=== PATIENT | female | born 1980 | race Caucasian/White ===

== ENCOUNTER 2019-05-26 00:05 | Emergency (ER) | payer OTHER ==
[~2019-05-26] VITALS: Ht 172.7 cm; Wt 104.3 kg
[~2019-05-26 00:05] MED LIST: ABILIFY 2 MG2 MG; ABILIFY MAINTE400 M1 IM; ABILIFY MAINTE400 MG IM; ABILIFY15 MG; ADDERALL 20 MG20 M1 PO; ADDERALL 30 MG30 MG PO; ADDERALL XR 2020 MG; ADDERALL XR 2020 MG PO; ADVAIR 500-501 EACH INH; ALBUTEROL2.5 MG/3 M IH; ALBUTEROL2.5 MG/31 INH; ALPRAZOLAM ER1 MG; AMBIEN 10 MG TA10 MG; AMBIEN 10 MG TA10 MG PO; AMBIEN 5 MG TABL5 M1 PO; ARISTADA882 MG/3.2 IM; ATIVAN0.5 MG PO; ATIVAN1 MG PO; AZITHROMYCIN 2250 MG PO; B12INJ SUBQ; BACLOFEN 10MG T10 MG PO; BACTRIM DS TAB1 EACH PO; BENADRYL25 MG PO; BENZTROPINE ME0.5 MG PO; CYMBALTA60 MG PO; D-AMPHETAMINE SALT PO; DIAZEPAM 10 MG10 M2 OR; DOXYCYCLINE 10100 MG PO; FENTANYL PA50 MCG/HR; FLEXERIL PO; GEODON40 MG PO; GLUCOPHAGE500 MG PO; HYDROCODON-ACE1 EAC7 PO; HYDROCODON-ACE1 EACH PO; HYDROCODONE; HYDROCODONE-AP1 EAC6 PO; HYDROCODONE-APA1 TA1 PO; IBUPROFEN 600600 M1 PO; IBUPROFEN 800800 M1 PO; IBUPROFEN 800800 MG PO; IRON325 PO; KEFLEX500 MG; LAMICTAL XR200 MG; LEVAQUIN 750 M750 MG PO; LEXAPRO 10 MG T10 M1 PO; LEXAPRO20 MG; LIDOCAINE 22 %/30 GM TRANSDERM; LIORESAL 10 MG10 MG PO; LISINOPRIL20 MG PO; LOPERAMIDE 2 MG2 M1 PO; LORTAB PO; MAALOX MAXIMUM355 ML PO; MEDROLDOSEPACK PO; METHOCARBAMOL500 M1 PO; MOM PO; NAPROSYN500 M1 PO; NEURONTIN 300300 M1 PO; NORCO 5-325 TA1 EAC1 PO; NORCO 5-325 TA1 EACH PO; NYSTATIN 1100000 U/M SW&SWALLOW; PREDNISONE 20 M20 M1 PO; PREDNISONE50 MG PO; PROTONIX40 M1 PO; PROZAC40 MG; RESTORIL15 MG PO; ROBAXIN 750 MG750 M1 PO; ROBAXIN 750 MG750 MG PO; ROBAXIN500 MG PO; ROBITUSSIN DM118 ML PO; TESSALON PERLE100 MG PO; TOPAMAX100 MG PO; TOPAMAX25 M1; TORADOL 10 MG T10 MG PO; TRAMADOL 50 MG50 MG PO; TRILEPTAL 300300 MG PO; TRILEPTAL300 MG PO; ULTRAM 50MG TAB50 MG PO; VALIUM10 MG PO; VALIUM5 MG; VALIUM5 MG PO; VENTOLIN HFA 1818 GM INH; VICODIN 5-5001 EACH PO; XANAX 0.5 MG0.5 MG; XANAX XR2 MG PO; XANAX1 MG PO; ZANAFLEX2 MG PO; ZPAK PO; [UNRECOGNIZED DRUG - OTHER]
[2019-05-26] MEDS ORDERED: LEXAPRO 10 MG T10 M2 PO (00:10)
[2019-05-26] MEDS ORDERED: TOPAMAX100 MG PO (00:11)
[2019-05-26] MEDS ORDERED: LAMICTAL150 MG PO (00:11)
[2019-05-26 00:39] LABS: INFLUENZA A ANTIGEN Negative (Negative); INFLUENZA B ANTIGEN Negative (Negative)
[2019-05-26] MEDS ORDERED: VENTOLIN HFA 1818 GM INH (01:17)
[2019-05-26 01:24] VITALS: BP 116/57
== END 2019-05-26 01:27 | disposition home or self-care (01) ==
LOC: M.ERS 00:05
PROVIDERS: Emergency Medicine Emergency Medical Services
DX: J45.909 Unspecified asthma, uncomplicated (principal); I10 Essential (primary) hypertension; F17.210 Nicotine dependence, cigarettes, uncomplicated; Z88.0 Allergy status to penicillin; Z88.5 Allergy status to narcotic agent; Z88.8 Allergy status to other drugs, medicaments and biological substances; Z87.01 Personal history of pneumonia (recurrent); Z86.2 Personal history of diseases of the blood and blood-forming organs and certain disorders involving the immune mechanism

== ENCOUNTER 2019-07-22 12:32 | Inpatient (IN) | payer OTHER ==
[~2019-07-22] VITALS: Ht 170.2 cm; Wt 135.6 kg
--- NOTE | ~2019-07-22 | CON ---
[address] [address] CONSULTATION Name: MANOLO BORJA Fabián Room: [address] IN M.R.#: [id number] Admission: 07/22/19 Attend Phys: Jay Costello Discharge: Date of : 82 Report #: [id number] THIS REPORT FOR: //name// cc: David Fox MD, Bruce D. MD ~ THIS REPORT FOR: //name// CC: David Felton DICTATED BY: Sejal Pino [facility] DATE OF SERVICE: 07/23/2019 Please note at the time of this dictation, the patient was seen and physically examined by myself. REASON FOR CONSULTATION: Anemia. HISTORY OF PRESENT ILLNESS: This is a 38-year-old female who presented to the Emergency Room with increasing shortness of breath that started the morning of admission. She does have a history of asthma. On arrival, her sats were in the 80s. She improved to the 90s after a respiratory treatment and received some Solu-Medrol as well as an albuterol treatment. She states she was feeling better. She had a nonproductive cough and a little bit of chest discomfort. She denies any nausea, vomiting, abdominal pain or any overt GI bleeding at this time. The patient was last seen by us in 2014 and she underwent an EGD by Dr. Galicia for her anemia, which was completely normal. She had a small hiatal hernia with her Benita-en-Y surgery that had been noted. The patient had previously had a colonoscopy back in 2007 that showed external hemorrhoids, which was essentially normal to the TI at that time as well. The patient does not take any iron supplementation or any B12 injections at this time. ALLERGIES: INCLUDE EFFEXOR, PENICILLIN, CODEINE, ZYPREXA, SUBOXONE. MEDICATIONS: From home include Lexapro, Lamictal, Topamax, Adderall, Ambien, Abilify and Xanax. PAST MEDICAL HISTORY: Includes pneumonia, depression, bipolar, asthma, meth use, hypertension, multiple suicide attempts, anemia, hypertension, herniated disk in the lower back and sciatica. PAST SURGICAL HISTORY: Gastric bypass in 2000 with multiple complications. She had 7 surgeries on her abdomen. Ulnar nerve surgery, tonsil [place] [address] CONSULTATION Name: MANOLO BORJA Fabián Room: [address]#: [id number] Admission: 07/22/19 Attend Phys: Jay Costello Discharge: Date of : 82 Report #: [id number] FAMILY HISTORY: Noncontributory. SOCIAL HISTORY: Continues to smoke tobacco, continues meth. Denies alcohol and on the urine drug screen, she was positive for amphetamines. REVIEW OF SYSTEMS: Twelve-point review of systems is essentially negative except what is mentioned in the HPI. PHYSICAL EXAMINATION: VITAL SIGNS: Temperature 36.5, pulse 114, respirations are 40, blood pressure 112/65. HEART: Regular rate and rhythm, but tachycardic. LUNGS: Diminished with crackles and wheezes bilaterally and she is in some respiratory distress and currently on BiPAP. ABDOMEN: Soft, positive bowel sounds in all 4 quadrants with no masses or tenderness noted and morbidly obese. LABORATORY DATA: Hemoglobin is 7.6, white count is 8.6, platelets 298, MCV is only 55.8. Total bilirubin is 2.8, alk phos 81, ALT 24, AST is 80. Chest x-ray essentially negative. IMPRESSION: 1. Acute on chronic anemia. 2. History of iron deficiency and B12 anemia in the past. 3. Elevated bilirubin. 4. Morbid obesity. 5. Respiratory distress. 6. History of substance abuse. PLAN: 1. Iron infusions. 2. We will check B12 and iron studies are pending. 3. Further recommendations to be made after the above has been noted. Thank you for allowing us to participate in this patient's care. Please do not hesitate to call with any questions in regard to this consult. By: [id number] Rain MD /terry
[~2019-07-22 12:32] MED LIST changes: +LAMICTAL150 MG PO; +LEXAPRO 10 MG T10 M2 PO
[2019-07-22 12:35] VITALS: BP 149/71
[2019-07-22 13:01] LABS: ABSOLUTE BASOPHILS 0.1 thou/uL (0.0-0.2); ABSOLUTE LYMPHOCYTES 0.6 thou/uL (0.8-5.3); ABSOLUTE MONOCYTES 0.8 thou/uL (0.0-1.2); ABSOLUTE NEUTROPHILS 7.1 thou/uL (1.6-8.1); BASOPHILS 1.7 %; HEMATOCRIT 25.8 % (37.0-47.0); HEMOGLOBIN 7.3 gm/dL (12.0-15.0); LYMPHOCYTES 6.5 %; MCH 15.8 pg (26.0-34.0); MCHC 28.4 g/dL (28.0-37.0); MCV 55.8 fL (80.0-100.0); MONOCYTES 9.5 %; MPV 8.9 fl. (7.2-11.1); NUCLEATED RBCS 0 /100WBC; PLATELET COUNT* 298 thou/uL (150-400); POLYS 82.3 %; RBC 4.63 mil/uL (4.20-5.00); RDW-CV 21.5 % (10.5-14.5); WBC 8.6 thou/uL (4.0-11.0)
[2019-07-22 13:04] LABS: INFLUENZA A ANTIGEN Negative (Negative); INFLUENZA B ANTIGEN Negative (Negative)
[2019-07-22 13:12] LABS: APTT 26.6 Seconds (25.0-31.3); INR 1.1; PROTIME 11.4 Seconds (9.20-11.50)
[2019-07-22 13:27] LABS: CALCIUM 8.4 mg/dL (8.5-10.1); CREATININE 0.7 mg/dL (0.6-1.3); POTASSIUM 4.4 mmol/L (3.5-5.1)
[2019-07-22 13:33] LABS: URINE BILIRUBIN NEGATIVE (Negative); URINE BLOOD NEGATIVE (Negative); URINE CLARITY CLEAR; URINE COLOR YELLOW; URINE GLUCOSE-RANDOM NEGATIVE (Negative); URINE KETONES NEGATIVE (Negative); URINE LEUKOCYTES-REFLEX NEGATIVE (Negative); URINE NITRITE-REFLEX NEGATIVE (Negative); URINE PROTEIN 1+ (Negative); URINE SPECIFIC GRAVITY >= 1.030 (1.005-1.030); URINE UROBILINOGEN 0.2 E.U./dl (0.2-1.0)
[2019-07-22 13:40] LABS: ALBUMIN 3.7 g/dL (3.4-5.0); TOTAL BILIRUBIN 2.8 mg/dL (<0.1-1.0); TOTAL PROTEIN 8.3 g/dL (6.4-8.2)
[2019-07-22 14:20] LABS: PLATELET ESTIMATE ADEQUATE
[2019-07-22 14:34] LABS: AMP/METHAMP POSITIVE (Negative); BARBITURATES Negative (Negative); BENZODIAZEPINES Negative (Negative); COCAINE Negative (Negative); METHADONE Negative (Negative); OPIATES Negative (Negative); PCP Negative (Negative); THC Negative (Negative)
[2019-07-22 17:28] VITALS: BP 140/82
[2019-07-22 17:50] VITALS: BP 125/55
[2019-07-22 18:50] VITALS: BP 135/57
[2019-07-22 20:00] VITALS: BP 123/63
[2019-07-23] VITALS (17 sets, daily range): BP systolic 112–183; BP diastolic 54–107
[2019-07-23 02:03] LABS: HEMATOCRIT 25.4 % (37.0-47.0); HEMOGLOBIN 7.5 gm/dL (12.0-15.0)
[2019-07-23 07:19] LABS: HEMATOCRIT 26.1 % (37.0-47.0); HEMOGLOBIN 7.6 gm/dL (12.0-15.0)
[2019-07-23 09:27] LABS: BE 6.2 mmol/L (-2 to +3)
[2019-07-23 09:28] LABS: PCO2 90.5 mmHg (35.0-45.0); pH 7.213 (7.340-7.450)
[2019-07-23 11:32] LABS: BE 9.2 mmol/L (-2 to +3); PO2 64.1 mmHg (75.0-100.0)
[2019-07-23 12:51] LABS: BE 6.1 mmol/L (-2 to +3); PO2 61.5 mmHg (75.0-100.0)
[2019-07-23 12:53] LABS: PCO2 70.8 mmHg (35.0-45.0); pH 7.298 (7.340-7.450)
[2019-07-23 13:03] LABS: % SATURATION 3 % (20-39); IRON 14 ug/dL (50-175)
[2019-07-23 16:19] LABS: BE 7.6 mmol/L (-2 to +3); PO2 74.9 mmHg (75.0-100.0)
[2019-07-23 16:22] LABS: PCO2 75.3 mmHg (35.0-45.0); pH 7.292 (7.340-7.450)
--- NOTE | 2019-07-23 16:24 | 2DMMODE ---
[place] [address] 2 D/M-MODE ECHOCARDIOGRAM Name: MANOLO BORJA Room: [address] ADM IN .R#: [id number] Admission: 07/22/19 Attend Phys: Chirag Felton Discharge: Date of : 82 Date of Service: 07/23/19 1623 Report #: [id number] THIS REPORT FOR: cc: David Fox MD, Bruce D. MD Liston, Michael J. MD [facility] ~ APPROVED REPORT Study performed: 07/23/2019 14:31:24 EXAM: Comprehensive 2D, Doppler, and color-flow Echocardiogram Patient Location: In-Patient Room #: 006 Status: routine BSA: 2.47 HR: 120 bpm BP: 161/90 mmHg Rhythm: NSR Other Information Study Quality: GoodFair Indications Chest Pain Pleural Effusion 2D Dimensions LVOT Diam: 21.30 (18-24mm) Ascending Ao: 29.64 (22-36mm) Aortic Root: 31.55 mm Volumes Left Atrial Volume (Systole) LA ESV Index: 19.60 mL/m2 Aortic Valve AoV Peak Leon.: 1.65 m/s AO Peak Gr.: 10.89 mmHg LVOT Max P.43 mmHg AO Mean Gr.: 5.73 mmHg LVOT Mean P.85 mmHg LVOT Max V: 1.45 m/s AO V2 VTI: 21.27 cm LVOT Mean V: 0.89 m/s BOB (VTI): 3.33 cm2 LVOT V1 VTI: 19.89 cm Left Ventricle [address] [address] 2 D/M-MODE ECHOCARDIOGRAM Name: MANOLO BORJA Room: [address] IN [facility]#: [id number] Admission: 07/22/19 Attend Phys: Chirag Felton Discharge: Date of : 82 Date of Service: 07/23/19 1623 Report #: [id number] The left ventricle is normal size. There is normal LV segmental wall motion. There is normal left ventricular wall thickness. Left ventricular systolic function is grossly normal. LVEF is 60-65%. Grade I - abnormal relaxation pattern. Right Ventricle The right ventricle is normal size. The right ventricular systolic function is normal. Atria The left atrium size is normal. The right atrium size is normal. Aortic Valve The aortic valve is normal in structure. No aortic regurgitation is present. There is no aortic valvular stenosis. Mitral Valve The mitral valve is normal in structure. There is no mitral valve regurgitation noted. No evidence of mitral valve stenosis. Tricuspid Valve The tricuspid valve is normal in structure. Unable to assess PA pressure. Trace tricuspid regurgitation. Pulmonic Valve Pulmonic valve is not well visualized. There is no pulmonic valvular regurgitation. Great Vessels The aortic root is normal in size. IVC is not well visualized. Pericardium There is no pericardial effusion. <Conclusion> Study technically limited. The left ventricle is normal size. There is normal left ventricular wall thickness. Left ventricular systolic function is grossly normal. LVEF is 60-65%. Grade I - abnormal relaxation pattern. Unable [place] [address] 2 D/M-MODE ECHOCARDIOGRAM Name: MANOLO BORJA Room: [address] IN .R.#: [id number] Admission: 07/22/19 Attend Phys: Chirag Felton Discharge: Date of : 82 Date of Service: 07/23/191622 Report #: [id number] Trace tricuspid regurgitation. IVC is normal in size and collapses >50% with inspiration. <ELECTRONICALLY SIGNED> By: Josse Phillips MD, FACC 07/23/191622 22 22 Josse Phillips MD, FACC /INF
[2019-07-24] VITALS (20 sets, daily range): BP systolic 84–163; BP diastolic 40–106
[2019-07-24 02:54] LABS: BE 11.4 mmol/L (-2 to +3); PO2 67.7 mmHg (75.0-100.0); pH 7.327 (7.340-7.450)
[2019-07-24 02:57] LABS: PCO2 76.3 mmHg (35.0-45.0)
[2019-07-24 03:43] LABS: HEMATOCRIT 24.6 % (37.0-47.0); HEMOGLOBIN 7.3 gm/dL (12.0-15.0); MCH 17.5 pg (26.0-34.0); MCHC 29.7 g/dL (28.0-37.0); MCV 59.1 fL (80.0-100.0); MPV 8.4 fl. (7.2-11.1); NUCLEATED RBCS 0 /100WBC; PLATELET COUNT* 276 thou/uL (150-400); RBC 4.16 mil/uL (4.20-5.00); RDW-CV 22.9 % (10.5-14.5); WBC 5.7 thou/uL (4.0-11.0)
[2019-07-24 03:56] LABS: ALBUMIN 3.3 g/dL (3.4-5.0); CALCIUM 9.1 mg/dL (8.5-10.1); CREATININE 0.7 mg/dL (0.6-1.3); MAGNESIUM 2.2 mg/dL (1.8-2.4); PHOSPHORUS* 3.1 mg/dL (2.5-4.9); POTASSIUM 4.2 mmol/L (3.5-5.1); TOTAL BILIRUBIN 0.8 mg/dL (<0.1-1.0); TOTAL PROTEIN 7.3 g/dL (6.4-8.2)
[2019-07-24 06:42] LABS: ABSOLUTE LYMPHOCYTES 0.3 thou/uL (0.8-5.3); ABSOLUTE MONOCYTES 0.2 thou/uL (0.0-1.2); ABSOLUTE NEUTROPHILS 5.1 thou/uL (1.6-8.1); HYPOCHROMASIA 3+; MICROCYTES 2+; PLATELET ESTIMATE ADEQUATE
[2019-07-24 06:43] LABS: ANISOCYTOSIS 2+; OVALOCYTES 1+; POIKILOCYTOSIS 2+; POLYCHROMASIA 1+; SCHISTOCYTES Occasional
[2019-07-25] VITALS (21 sets, daily range): BP systolic 107–162; BP diastolic 50–94
[2019-07-25 07:33] LABS: HEMATOCRIT 24.9 % (37.0-47.0); HEMOGLOBIN 7.4 gm/dL (12.0-15.0); MCH 17.7 pg (26.0-34.0); MCHC 29.5 g/dL (28.0-37.0); MPV 8.9 fl. (7.2-11.1); RBC 4.16 mil/uL (4.20-5.00); RDW-CV 24.3 % (10.5-14.5); WBC 4.1 thou/uL (4.0-11.0)
[2019-07-25 07:52] LABS: CREATININE 0.7 mg/dL (0.6-1.3); POTASSIUM 4.4 mmol/L (3.5-5.1)
[2019-07-25 10:12] LABS: HEPATITIS B SURFACE AG Negative (Negative)
[2019-07-26 00:36] VITALS: BP 131/65
[2019-07-26 03:57] LABS: HEMATOCRIT 28.5 % (37.0-47.0); HEMOGLOBIN 8.5 gm/dL (12.0-15.0); MCH 18.8 pg (26.0-34.0); MCHC 29.7 g/dL (28.0-37.0); MCV 63.2 fL (80.0-100.0); RBC 4.51 mil/uL (4.20-5.00); RDW-CV 27.9 % (10.5-14.5); WBC 6.2 thou/uL (4.0-11.0)
[2019-07-26 06:29] LABS: BE 12.9 mmol/L (-2 to +3); PO2 75.3 mmHg (75.0-100.0); pH 7.309 (7.340-7.450)
[2019-07-26 14:50] VITALS: BP 155/85
[2019-07-26 15:50] VITALS: BP 112/60
[2019-07-26 19:50] VITALS: BP 108/65
[2019-07-26 23:47] VITALS: BP 108/65
[2019-07-27 08:00] VITALS: BP 159/78
[2019-07-27 12:00] VITALS: BP 130/79
[2019-07-27 14:00] VITALS: BP 123/62
[2019-07-27 19:50] VITALS: BP 144/80
[2019-07-28] VITALS (7 sets, daily range): BP systolic 108–163; BP diastolic 46–98
[2019-07-29 00:44] VITALS: BP 121/70
[2019-07-29 08:00] VITALS: BP 148/81
[2019-07-29 16:42] VITALS: BP 142/78
[2019-07-30 07:49] VITALS: BP 149/85
[2019-07-30] MEDS ORDERED: PULMICORT0.5 MG/2 M INH (09:45)
[2019-07-30] MEDS ORDERED: NICOTINE TRANSD21 M1 TRANSDERM (09:45)
[2019-07-30] MEDS ORDERED: XANAX 0.5 MG0.5 MG PO (09:45)
[2019-07-30] MEDS ORDERED: PREDNISONE 10 M10 MG PO (09:45)
[2019-07-30] MEDS ORDERED: ALBUTEROL2.5 MG/31 INH (09:49)
[2019-07-30] MEDS ORDERED: NEBULIZER MISCELL (09:50)
[2019-07-30] MEDS ORDERED: VENTOLIN HFA 1818 GM INH (10:02)
[2019-07-30] MEDS ORDERED: ACID CONTROLLER20 MG PO (10:24)
[2019-07-30] MEDS ORDERED: ACETAMINOPHEN500 M1 PO (10:27)
[2019-07-30] MEDS ORDERED: MELATONIN3 M1 PO (10:28)
[2019-07-30] MEDS ORDERED: THROAT LOZENGE1 EACH PO (10:29)
[2019-07-30 10:30] VITALS: BP 149/85
--- NOTE | 2019-08-02 14:56 | EKG ---
[place] [address] ELECTROCARDIOGRAM REPORT Name: MANOLO BORJA Room: [address] IN M.R.#: [id number] Admission: 07/22/19 Attend Phys: Chirag Felton Discharge: 07/30/19 Date of : 82 Date of Service: 07/22/19 1238 Report #: [id number] THIS REPORT FOR: //name// [facility] ED Test Date: 2019-07-22 Test Time: 12:38:43 Pat Name: MANOLO BORJA Department: Room: [facility] Gender: F Senior Net Software Engineer: VIANEY : 1980 Requested By: Liborio Chiu Order Number: [id number] MD: Gaudencio Strickland Measurements Intervals [place] Rate: 140 P: DC: QRS: 61 QRSD: 115 T: 174 QT: 281 QTc: 429 Interpretive Statements Atrial fibrillation Nonspecific intraventricular conduction delay Repol abnrm suggests ischemia, lateral leads Artifact in lead(s) I,II,III,aVR,aVL,aVF,V3,V4 Compared to ECG 11/18/2016 08:48:31 Sinus tachycardia no longer present Electronically Signed On 07-22-2019 15:33:29 SUPPLIER ENGINEER by Gaudencio Srtickland [email or web address] <ELECTRONICALLY SIGNED> By: Gaudencio Strickland MD, [facility] 07/22/19 1533 1238 1238 Gaudencio Strickland MD, [facility] /EPI
== END 2019-07-30 16:00 | disposition home or self-care (01) | DRG 189 ==
LOC: M.ERS 12:32 → M.2W 14:29 → M.ICU 14:29 → M.TBA-ER 14:29 → M.2W 17:47 → M.ICU 07-23 10:23 → M.2W 07-26 17:01 → M.ORTHSURG 07-29 20:14
PROVIDERS: Emergency Medicine Emergency Medical Services; Internal Medicine Pulmonary Disease; Nurse Practitioner Adult Health; ADMIT Internal Medicine
PROC: 30233N1 Transfusion of Nonautologous Red Blood Cells into Peripheral Vein, Percutaneous Approach (ICD-10-PCS; principal; 2019-07-22)
PROC: 5A09357 Assistance with Respiratory Ventilation, Less than 24 Consecutive Hours, Continuous Positive Airway Pressure (ICD-10-PCS; principal; 2019-07-22)
PROC: 5A09357 Assistance with Respiratory Ventilation, Less than 24 Consecutive Hours, Continuous Positive Airway Pressure (ICD-10-PCS; 2019-07-24)
PROC: B54NZZA Ultrasonography of Left Upper Extremity Veins, Guidance (ICD-10-PCS; 2019-07-25)
PROC: 05HY33Z Insertion of Infusion Device into Upper Vein, Percutaneous Approach (ICD-10-PCS; 2019-07-25)
DX: J96.21 Acute and chronic respiratory failure with hypoxia (principal); J44.0 Chronic obstructive pulmonary disease with (acute) lower respiratory infection; E66.2 Morbid (severe) obesity with alveolar hypoventilation; E44.1 Mild protein-calorie malnutrition; Z68.42 Body mass index [BMI] 45.0-49.9, adult; J96.22 Acute and chronic respiratory failure with hypercapnia; F17.210 Nicotine dependence, cigarettes, uncomplicated; F15.10 Other stimulant abuse, uncomplicated; D50.9 Iron deficiency anemia, unspecified; J45.50 Severe persistent asthma, uncomplicated; E88.81 Metabolic syndrome and other insulin resistance; F41.1 Generalized anxiety disorder; N92.4 Excessive bleeding in the premenopausal period; F31.9 Bipolar disorder, unspecified; M54.32 Sciatica, left side; I10 Essential (primary) hypertension; Z98.84 Bariatric surgery status; Z87.01 Personal history of pneumonia (recurrent); Z28.21 Immunization not carried out because of patient refusal; Z79.51 Long term (current) use of inhaled steroids; Z79.899 Other long term (current) drug therapy; Z88.6 Allergy status to analgesic agent; Z88.5 Allergy status to narcotic agent; Z88.0 Allergy status to penicillin; Z88.8 Allergy status to other drugs, medicaments and biological substances; Z82.49 Family history of ischemic heart disease and other diseases of the circulatory system; Z91.5 Personal history of self-harm; Z79.2 Long term (current) use of antibiotics